=== PATIENT | female | born 1935 | race Asian ===

== ENCOUNTER 2017-05-17 11:53 | Inpatient (IN) | payer MEDICAID, OTHER ==
--- NOTE | 2017-05-17 12:01 | ED Physician Chart ---
ED Chief Complaint/HPI - Patient Information Date Seen:: 05/17/17 Time Seen:: 11:55 Chief Complaint:: Weakness History of Present Illness:: onset x one day of weakness and dizziness; no report of trauma, syncope, near- syncope, H/As, S/T, neck pain, C/P, SOB, cough, Abd. Pain, A/N/V/D/C, fever, chills, or urinary s/s Historian:: Patient, EMS Review:: Nurse's Note Reviewed, EMS run form Reviewed ED Review of Systems - Review of Systems General/Constitutional: No fever, No chills, No weight loss, No weakness, No diaphoresis, No edema, No loss of appetite Skin: No skin lesions, No rash, No bruising Head: No headache, No light-headedness Eyes: No loss of vision, No pain, No diplopia ENT: No earache, No nasal drainage, No sore throat, No tinnitus Neck: No neck pain, No swelling, No thyromegaly, No stiffness, No mass noted Cardio Vascular: No chest pain, No palpitations, No PND, No orthopnea, No edema Pulmonary: SOB, Cough, No sputum, No wheezing GI: No nausea, No vomiting, No diarrhea, No pain, No melena, No hematochezia, No constipation, No hematemesis G/U: No dysuria, No frequency, No hematuria Profiler Hand: No vaginal discharge, No abnormal vaginal bleed, No contraction Musculoskeletal: No bone or joint pain, No back pain, No muscle pain Endocrine: No polyuria, No polydipsia Psychiatric: No prior psych history, No depression, No anxiety, No suicidal ideation, No homicidal ideation, No auditory hallucination, No visual hallucination Hematopoietic: No bruising, No lymphadenopathy Allergic/Immuno: No urticaria, No angioedema Neurological: No syncope, No focal symptoms, No weakness, No paresthesia, No headache, No seizure, Dizziness, No confusion, Vertigo ED Past Medical History - Past Medical History Obtainable: Yes Past Medical History: HTN, CAD, Arthritis Family History: Diabetes Melitus, HTN Social History: Non Smoker, No Alcohol, No Drug Use, Surgical History: None Psychiatricy History: None Medication: Reviewed ED Physical Exam - Physical Examination General/Constitutional: Awake, Well-developed, well-nourished, Alert, No distress, GCS 15, Non-toxic appearing, Ambulatory Head: Atraumatic Eyes: Lids, conjuctiva normal, PERRL, EOMI Skin: Nl inspection, No rash, No skin lesions, No ecchymosis, Well hydrated, No lymphadenopathy ENMT: External ears, nose nl, TM canals nl, Nasal exam nl, Lips, teeth, gums nl , Oropharynx nl, Tonsils nl Neck: Nontender, Full ROM w/o pain, No JVD, No nuchal rigidity, No bruit, No mass, No stridor Respiratory: Nl effort/Exclusion Other Respiratory comments:: Lungs: + Rales Cardio Vascular: No murmur, gallop, rubs, NL S1 S2, Carotid/Femoral/Distal pulses equal bilaterally Other Cardio Vascular comments:: Irregular Irregular Rhythm GI: No tenderness/rebounding/guarding, No organomegaly, No hernia, Normal BS's, Nondistended, No mass/bruits, No McBurney tenderness : No CVA tenderness Extremities: No tenderness or effusion, Full ROM, normal strength in all extremities, No edema, Normal digits & nails Neuro/Psych: Alert/oriented, DTR's symmetric, Normal sensory exam, Normal motor strength, Judgement/insight normal, Mood normal, Normal gait, No focal deficits Misc: Normal back, No paraspinal tenderness ED Labs/Radiology/EKG Results - Lab Results Comments:: WBC: 4.4; BNP: 589 - Radiology Results Comments:: CXR: CM; mild CHF - EKG Interpretations EKG Time:: 13:22 Rate & Rhythm: 78; Atrial Fibrillation Comments:: non-specific st-t changes ED Septic Shock - . Is Septic Shock (SBP<90, OR Lactate>4 mmol\L) present?: No ED Reassessment (Disposition) - Reassessment Reassessment Condition:: Improved - Diagnosis Diagnosis:: Dx: Atrial Fibrillation; Leukopenia; CHF - Aftercare/Follow up Instructions Aftercare/Follow-Up Instructions:: Counseled pt regarding lab results/diagnosis & need follow up, Counseled pt & family regarding lab results/diagnosis & need follow up - Patient Disposition Discharge/Transfer:: Acute Care w/in this hosp Accepting Physician:: Dr. Rene Time Called:: 1430 Time Responded:: 14:30 Admitted to:: Telemetry Spoke to:: Dr. Rene Admitting Medical Physician:: Dr. Rene Condition at Disposition:: Stable, Improved
[2017-05-17 12:25] LABS: % BASOPHILS 0.1 % (0.0-2.0); % LYMPHOCYTES 26.6 % (20.0-50.0); % MONOCYTES 8.3 % (2.0-10.0); EOSINOPHILE ABSOLUTE 0.1 Th/cmm (0.1-0.4); HEMOGLOBIN 13.7 gm/dL (12-16); LYMPHOCYTE ABSOLUTE 1.2 Th/cmm (1.5-3.0); MEAN CELL VOLUME 93.1 fl (81-100); MEAN CORPUSCULAR HEMOGLOBIN 30.4 pg (27.0-31.0); MEAN CORPUSCULAR HGB CONC 32.7 pg (28.0-36.0); MEAN PLATELET VOLUME 7.4 fl; MONOCYTE ABSOLUTE 0.4 Th/cmm (0.3-1.0); NEUTROPHILE ABSOLUTE 2.7 Th/cmm (1.8-8.0); PLATELET COUNT 218 Th/cmm (150-400); RED BLOOD COUNT 4.51 Mil/cmm (3.80-5.20); RED CELL DISTRIBUTION WIDTH 16.1 % (11.5-20.0); WHITE BLOOD COUNT 4.4 Th/cmm (4.8-10.8)
--- NOTE | 2017-05-17 12:53 | Diagnostic Imaging Report ---
Exam: CT examination of brain. HISTORY: Dizziness weakness. Total DLP equals 732 CTDI equals 38.2 Findings: Multiple contiguous thin section of brain obtained from the base of skull to the vertex without the administration of contrast material no prior studies available for comparison. The study demonstrates prominence of cerebral sulci and ventricles consistent with atrophy. Periventricular ischemic white matter changes also etiology appreciated. Diffuse calcification cerebellum and basal ganglia appreciated. This findings may be related to previous infectious process. There is no evidence of hemorrhage midline shift or edema. Bony calvarium is intact. Visualized paranasal sinuses are well aerated. IMPRESSION : Atrophy, periventricular ischemic white matter changes old etiology
[2017-05-17 13:05] LABS: ALB/GLOB RATIO 1.8 (1.0-1.8); ALBUMIN 4.1 gm/dL (3.7-5.3); ALKALINE PHOSPHATASE 91 U/L (34-104); ANION GAP 9.8 (7.0-16.0); BUN - UREA NITROGEN 18 mg/dL (7-25); CALCIUM SERUM 9.5 mg/dL (8.6-10.3); CARBON DIOXIDE 31.3 mEq/L (21.0-31.0); CHLORIDE 105 mEq/L (98-107); CHOLESTEROL 76 mg/dL (<200); CREATININE KINASE 122 U/L (30-223); GLUCOSE 110 mg/dL (70-105); HDL -HIGH DENSITY LIPOPROTEIN 40 mg/dL (23-92); POTASSIUM SERUM 5.1 mEq/L (3.5-5.1); SGOT 33 U/L (13-39); SGPT/ALT 23 U/L (7-52); SODIUM SERUM 141 mEq/L (136-145); TOTAL PROTEIN,SERUM 6.4 gm/dL (6.0-8.3); TRIGLYCERIDES 74 mg/dL (<150)
[2017-05-17 13:52] LABS: INR 1.3 (0.5-1.4); PROTHROMBIN TIME (TEST) 13.7 SECONDS (9.5-11.5)
[2017-05-17 13:54] LABS: DDIMER QUANT 922 ng/mL (100-400)
--- NOTE | 2017-05-17 14:03 | Diagnostic Imaging Report ---
Portable chest x-ray HISTORY: Pain The heart is enlarged. Atherosclerotic calcification seen in the aortic arch. No acute focal prominent processes. IMPRESSION: 1. No acute focal pulmonary processes 2. Cardiomegaly with atherosclerotic vascular changes
--- NOTE | 2017-05-17 18:54 | History & Physical ---
ADMIT DATE: 05/17/2017 CHIEF COMPLAINT: Doctor, "I get short of breath with walking a few steps and it is getting worse for last 1 week." HISTORY OF PRESENT ILLNESS: An 82-year-old [place] female with a diagnosis of hypertension, osteoarthritis, questionable rheumatoid arthritis, has been followed by pinking sewing machine operator, stated that she always gets dizzy when she uses 1 pillow, but lately she noticed that she was having shortness of breath with exertion and she stated when she walks few steps she gets short of breath and she has to rest. She thinks she needs to get better because she wants to do lot of things in her life. She also describes to me that she also noticed her face was kind of swollen. The patient denied any chest pain, but she states she was told that she has a skipped heartbeat. She was seen by foreman/project manager 1 year ago and she was told that she also has a weak heart, but no medicine was given as per patient's account. She has hypertension and she takes atenolol at home. Now, she just told me that she has been taking methotrexate for years for rheumatoid arthritis. The patient's methotrexate dose has cut down to only 2.5 mg. The patient currently denies any fever, chills, abdominal pain, nausea, vomiting, hematemesis, seizure, syncopal episode, suicidal or homicidal ideation. PAST MEDICAL HISTORY: Remarkable for: 1. Hypertension. 2. Rheumatoid arthritis. 3. Degenerative joint disease. 4. ____. MEDICATIONS AT HOME: She was taking atenolol, Prilosec, famotidine and methotrexate. ALLERGIES: The patient is not allergic to medications. SOCIAL HISTORY: The patient lives with the daughter in [facility]. She does not smoke, does not drink. FAMILY MEDICAL HISTORY: Remarkable for diabetes mellitus. REVIEW OF SYSTEMS: As I mentioned in history of present illness. PHYSICAL EXAMINATION: GENERAL: An 82-year-old, alert, awake, lying in the bed without any acute distress. VITAL SIGNS: Temperature 99, pulse is 74, respiratory rate is 20, blood pressure 136/90. HEENT: Normocephalic and atraumatic. Extraocular muscles are intact. Tongue more pink and coated. Multiple absent teeth with poor personal hygiene noted. NECK: Supple, slightly neck vein distention noted. No JVD, no lymphadenopathy, thyromegaly. HEART: Both heart sounds are irregularly irregular. Grade 2/6 systolic murmur noted. CHEST: Lung equal in expansion with fine basilar crackles noted. ABDOMEN: Soft. No guarding or rigidity. Liver and spleen palpable. No palpable mass. EXTREMITIES: No edema, no cyanosis. Peripheral +1. No calf tenderness. NEUROLOGIC: Alert, awake and follows commands. Decreased power throughout the upper and lower extremity. AVAILABLE DIAGNOSTIC DATA: Which includes CT scan of the head, chest x-ray, chemistry panel, CBC, PT/INR are reviewed. CLINICAL IMPRESSION: 1. An 82-year-old female with longstanding history of rheumatoid arthritis, takes methotrexate, now comes to the office for a week history of shortness of breath with exertion and she also tells me she has been told that she has a weak heart, now noted to have atrial fibrillation and elevated BNP. A chest x-ray read by radiologist as negative for any acute cardiopulmonary process, but in the view of my examination and laboratory diagnosis, I do think the patient's symptoms are related to congestive heart failure exacerbation. I cannot rule out possibilities of pulmonary fibrosis in the view of her long-time ____ methotrexate. 2. Atrial fibrillation. 3. Hypertension. 4. History of rheumatoid arthritis. 5. Degenerative joint disease. PLAN: 1. I will admit this patient to telemetry unit, provide oxygen. 2. Nebulizer treatment. 3. IV Lasix. 4. ARB. 5. Beta yulisa. 6. 2D echo. 7. Cardiology consult. 8. Three sets of cardiac enzymes and EKG. 9. CT chest. 10. Thyroid function test. 11. Proton pump inhibitor. 12. Follow lab 13. Follow consult recommendation. 14. Anticoagulation therapy will be deferred to foreman/project manager, may be newer agent versus low molecular weight heparin deferred to foreman/project manager. Care plan has been reviewed and discussed with the patient's daughter at bedside. JOB# [id number]
[2017-05-17] MEDS: Albuterol/Ipratropium Neb 3 ML AERS HHN SCH (20:34)
--- NOTE | 2017-05-17 22:23 | Consultation ---
DATE OF CONSULTATION: 05/17/[address] Rene. HISTORY AND PHYSICAL: This 82-year-old [place]ian female patient who has been complaining of shortness of breath, swelling of the face ____, came to the Emergency Room. The patient has a known history of hypertension, rheumatoid arthritis, degenerative joint disease, osteoporosis and GERD. FAMILY HISTORY: Unremarkable. SOCIAL HISTORY: No history of smoking or alcohol abuse. ALLERGIES: No known allergies. PHYSICAL EXAMINATION: VITAL SIGNS: Blood pressure 130/80, pulse 88 and irregular and respirations 28. HEAD: Normocephalic. No lumps or bumps. EYES: Pupils equal, reactive to light. Fundi show AV nicking, sclerae white, conjunctivae pink. NECK: Carotid 2+. Normal upstroke. JVD 10 cm above sternal angle. Thyroid not palpable. Lymph nodes not palpable. CHEST: Shows increased AP diameter. No kyphosis or scoliosis. LUNGS: Bilateral rales. Decreased breath sounds both the bases. HEART: PMI, fifth intercostal space with lateral to midclavicular line. S1 and S2. No S3, soft S4, soft systolic murmur. ABDOMEN: Soft. Liver and spleen not palpable. No organomegaly. Bowel sounds active. NEUROLOGIC: Unremarkable. EXTREMITIES: Peripheral pulses 2+. No pedal edema. CLINICAL IMPRESSION: Atrial fibrillation, congestive heart failure, hypertension, rheumatoid arthritis and degenerative joint disease. PLAN: The patient to have echocardiogram for left ventricular function. We will anticoagulate the patient. Continue present care on the medication and continue methotrexate. [facility]# [id number]
[2017-05-18] MEDS ORDERED: Albuterol/Ipratropium Neb 3 ML AERS HHN ONE ×2 (07:21→11:33)
[2017-05-18 07:38] LABS: % BASOPHILS 0.1 % (0.0-2.0); % EOSINOPHILS 2.5 % (0.0-5.0); % LYMPHOCYTES 25.7 % (20.0-50.0); % MONOCYTES 14.4 % (2.0-10.0); % NEUTROPHILS 57.3 % (40.0-80.0); EOSINOPHILE ABSOLUTE 0.1 Th/cmm (0.1-0.4); HEMATOCRIT 38.8 % (41.0-60); HEMOGLOBIN 12.4 gm/dL (12-16); LYMPHOCYTE ABSOLUTE 0.8 Th/cmm (1.5-3.0); MEAN CELL VOLUME 93.2 fl (81-100); MEAN CORPUSCULAR HEMOGLOBIN 29.8 pg (27.0-31.0); MEAN PLATELET VOLUME 8.1 fl; MONOCYTE ABSOLUTE 0.5 Th/cmm (0.3-1.0); NEUTROPHILE ABSOLUTE 1.8 Th/cmm (1.8-8.0); PLATELET COUNT 190 Th/cmm (150-400); RED BLOOD COUNT 4.16 Mil/cmm (3.80-5.20)
[2017-05-18 07:43] LABS: WHITE BLOOD COUNT 3.2 Th/cmm (4.8-10.8)
[2017-05-18] MEDS: Albuterol/Ipratropium Neb 3 ML AERS HHN SCH ×3 (07:44→19:40)
[2017-05-18 08:07] LABS: ANION GAP 10.9 (7.0-16.0); BUN - UREA NITROGEN 20 mg/dL (7-25); CARBON DIOXIDE 28.2 mEq/L (21.0-31.0); CHLORIDE 105 mEq/L (98-107); GLUCOSE 145 mg/dL (70-105); POTASSIUM SERUM 4.1 mEq/L (3.5-5.1); SODIUM SERUM 140 mEq/L (136-145)
[2017-05-18 08:08] LABS: ALB/GLOB RATIO 1.9 (1.0-1.8); ALBUMIN 3.6 gm/dL (3.7-5.3); ALKALINE PHOSPHATASE 84 U/L (34-104); BILIRUBIN,TOTAL 1.6 mg/dL (0.3-1.0); CALCIUM SERUM 9.3 mg/dL (8.6-10.3); MAGNESIUM 2.1 mg/dL (1.9-2.7); SGOT 30 U/L (13-39); SGPT/ALT 21 U/L (7-52); TOTAL PROTEIN,SERUM 5.5 gm/dL (6.0-8.3)
[2017-05-18] MEDS: Pantoprazole 40 mg EC Tab PO SCH (08:10)
--- NOTE | 2017-05-18 08:21 | Diagnostic Imaging Report ---
CT Chest without IV contrast HISTORY: Shortness of breath COMPARISON: Chest x-ray on 05/17/2017 Technique: Axial images were obtained from the base of the neck to the upper abdomen without IV contrast. Reconstructions were made. Total DLP 197, CTD I explained 5 Findings: Evaluation of mediastinum is limited due to lack of IV contrast. There is no evidence of mediastinal lymphadenopathy. Moderate atherosclerotic vascular disease is noted. Cardiomegaly is noted. No evidence of pericardial effusion. The ascending aorta ectatic measuring up to 3.8 cm. There is elevation of the right hemidiaphragm. Mild chronic lung changes are seen with hypoventilatory changes and mild groundglass opacities. Atelectatic changes of the lungs are also noted. No focal consolidation. Trace bilateral effusions are noted. The upper abdomen demonstrates atherosclerosis. Anasarca is noted. Degenerative changes of the spine are noted. Scoliosis is noted. IMPRESSION: Mild groundglass opacity the lungs which are nonspecific and may represent faint infiltrates or may be due to hypoventilatory changes. Trace bilateral effusions. Atelectatic and hypoventilatory changes of the lungs. Cardiomegaly and moderate atherosclerotic vascular disease. Ectatic ascending aorta measuring up to 3.8 cm.
[2017-05-18] MEDS ORDERED: Potassium Chloride 20 mEq ER Tab PO SCH (09:00)
[2017-05-18] MEDS ORDERED: IOHEXOL 300mgI/mL 100 ML VIAL IVP ONE (10:05)
--- NOTE | 2017-05-18 12:20 | Diagnostic Imaging Report ---
CHEST X-RAY: AP view INDICATION: CHF COMPARISON: 05/17/2017 FINDINGS: Mild congestive changes are is suspected with probable small right effusion. No focal consolidation identified. Cardiomegaly is noted. IMPRESSION: Suspect Mild congestive changes. No focal consolidation identified. Cardiomegaly.
--- NOTE | 2017-05-18 13:31 | Diagnostic Imaging Report ---
CT Chest with IV contrast HISTORY: Pulmonary fibrosis. COMPARISON: CT chest on 05/17/2017 Technique: Axial images were obtained from the base of the neck to the upper abdomen following administration of IV contrast. Coronal reconstructions were made. Total DLP to 47, CTD I 6.5 Findings: There is a 9 mm nodule along the right lower thyroid gland. No evidence of mediastinal lymphadenopathy. Ectatic aorta is noted measuring up to 3.8 cm. Cardiomegaly is noted with prominence of the right atrial chamber. No pericardial effusion. The lung riley demonstrate hypoventilatory and groundglass opacities with small effusions. Mild chronic lung changes are seen with no definite evidence of fibrosis. Atelectatic changes of the lungs are also noted. No evidence of pleural effusions.. The upper abdomen demonstrates mild edema of the gallbladder. There is an indeterminate 2.5 cm left adrenal nodule is noted. Sub-CM low-density lesion of the dome of the liver is noted to small to characterize. Degenerative changes spine are noted scoliosis. IMPRESSION: Scattered groundglass opacity of the lungs which may be due to mild CHF. Small bilateral effusions are also noted. Please correlate clinically. Mild chronic lung changes are seen with no evidence of pulmonary fibrosis. Cardiomegaly and atherosclerotic vascular disease. 2.5 cm left adrenal nodule, Hounsfield units are indeterminate. Recommend short-term follow-up with CT abdomen and pelvis, without IV contrast Gallbladder wall edema. Consider follow-up with ultrasound. 9 mm nodule in the right lobe of the thyroid gland. Ultrasound would further clarify.
[2017-05-19 07:07] LABS: % BASOPHILS 0.1 % (0.0-2.0); % EOSINOPHILS 4.3 % (0.0-5.0); % LYMPHOCYTES 22.7 % (20.0-50.0); % MONOCYTES 14.8 % (2.0-10.0); % NEUTROPHILS 58.1 % (40.0-80.0); EOSINOPHILE ABSOLUTE 0.2 Th/cmm (0.1-0.4); HEMATOCRIT 37.9 % (41.0-60); HEMOGLOBIN 12.5 gm/dL (12-16); MEAN CELL VOLUME 92.8 fl (81-100); MEAN CORPUSCULAR HEMOGLOBIN 30.6 pg (27.0-31.0); MEAN PLATELET VOLUME 7.8 fl; MONOCYTE ABSOLUTE 0.6 Th/cmm (0.3-1.0); NEUTROPHILE ABSOLUTE 2.5 Th/cmm (1.8-8.0); PLATELET COUNT 194 Th/cmm (150-400); RED BLOOD COUNT 4.08 Mil/cmm (3.80-5.20); RED CELL DISTRIBUTION WIDTH 16.3 % (11.5-20.0)
[2017-05-19 07:11] LABS: WHITE BLOOD COUNT 4.3 Th/cmm (4.8-10.8)
[2017-05-19] MEDS: Albuterol/Ipratropium Neb 3 ML AERS HHN SCH (07:27)
[2017-05-19 07:37] LABS: ALB/GLOB RATIO 1.5 (1.0-1.8); ALBUMIN 3.2 gm/dL (3.7-5.3); ALKALINE PHOSPHATASE 96 U/L (34-104); ANION GAP 10.8 (7.0-16.0); BILIRUBIN,TOTAL 1.5 mg/dL (0.3-1.0); BUN - UREA NITROGEN 19 mg/dL (7-25); CALCIUM SERUM 8.9 mg/dL (8.6-10.3); CHLORIDE 102 mEq/L (98-107); GLUCOSE 133 mg/dL (70-105); POTASSIUM SERUM 3.8 mEq/L (3.5-5.1); SGOT 28 U/L (13-39); SGPT/ALT 19 U/L (7-52); SODIUM SERUM 140 mEq/L (136-145); TOTAL PROTEIN,SERUM 5.3 gm/dL (6.0-8.3)
[2017-05-19] MEDS ORDERED: Magnesium Chloride EC 64mg Tab PO SCH (09:00)
[2017-05-19] MEDS ORDERED: Potassium Chloride 20 mEq ER Tab PO SCH (09:00)
[2017-05-19] MEDS: Pantoprazole 40 mg EC Tab PO SCH (09:22)
--- NOTE | 2017-05-19 17:05 | Cardiology ---
05/18/2017 This is a patient of Dr. Rene. M-MODE ECHOCARDIOGRAM: Anterior leaflet mitral valve shows normal excursion, EF velocity. Posterior leaflet of mitral valve shows normal excursion. Left ventricular posterior shows increased thickness, normal excursion. Interventricular septum shows increased thickness, normal excursion, hypertrophy of the left ventricle, ejection fraction 60%. Left atrium is normal. Aortic root shows normal dimension, normal excursion of aortic leaflets. CONCLUSION: Hypertrophy of the left ventricle, ejection fraction 60%. A 2D echocardiogram on the same patient: Long axis view showed normal-sized left ventricle with hypertrophy of the left ventricle. Left atrium is normal. Aortic root shows normal dimension, normal excursion of aortic leaflets. Short axis view of mitral valve normal. Short axis view of aortic valve normal. Apical four chamber view showed normal-sized left ventricle with hypertrophy of the left ventricle. Left atrium, normal. Right ventricular cavity normal. Right atrium enlarged, ejection fraction 60%. CONCLUSION: Right atrial enlargement. Hypertrophy of the left ventricle, ejection fraction is 60%. Doppler study shows moderate mitral regurgitation, severe tricuspid regurgitation, mild pulmonary regurgitation, right ventricular systolic pressure 55 mmHg with moderate pulmonary hypertension. JOB# [id number]
--- NOTE | 2017-05-19 18:47 | Discharge Summary ---
DATE OF DISCHARGE: 05/19/2017 PRINCIPAL DIAGNOSES: 1. New onset of atrial fibrillation. 2. Left ventricular dysfunction. 3. Congestive heart failure exacerbation. 4. Hypertension. 5. Degenerative joint disease. 6. Rheumatoid arthritis by history. 7. Decline in self care, mobility. BRIEF STATEMENT FOR THE REASON FOR ADMISSION: An 82-year-old Irish [place]an female, who presented to Emergency Room for evaluation of dizziness, shortness of breath with exertion where the patient was evaluated and subsequently admitted to the hospital for further treatment. Please refer to my dictated medical H and P for further information. HOSPITAL COURSE: The patient was admitted to telemetry unit. The patient was given: 1. Oxygen. 2. Nebulizer treatment. 3. IV Lasix. 4. ARB. 5. Beta yulisa. 6. Anticoagulation therapy. 7. Cardiology consultation. 8. Cardiac monitoring. The patient was given appropriate therapy and the patient was improving fairly well in the view of her chest x-ray being negative. CT chest with contrast has revealed consistent with pulmonary edema. The patient did improve significantly with IV Lasix and the patient did have 2D echocardiogram. 2D echocardiogram did reveal the patient had evidence of LV dysfunction. 2D echocardiogram did reveal the patient had an ejection fraction of 60% along with mild to moderate mitral regurgitation, severe tricuspid regurgitation along with mildly dilated inferior vena cava. The patient was placed on anticoagulation therapy with Eliquis at the time of discharge. Since the patient improved significantly, decision then was made that the patient will be discharged home. The patient was given prescription of losartan 25 mg daily, Coreg 3.125 mg b.i.d. along with Lasix 40 mg daily, and potassium 20 mEq daily along with Eliquis 5 mg b.i.d. and has followup with washery engineer in 1 week. The patient is advised to stop her atenolol as well as a Pepcid at home and methotrexate as well. The patient has fully understood about the discharge plan. The patient will be followed by home health visiting nurse as well. JOB# [id number]
== END 2017-05-19 13:30 | disposition home or self-care (01) | DRG 293 ==
LOC: ER 11:53 → TELE 17:45
PROVIDERS: ADMIT Internal Medicine; ATTEND Internal Medicine
DX: I11.0 Hypertensive heart disease with heart failure (principal); I48.91 Unspecified atrial fibrillation; I08.1 Rheumatic disorders of both mitral and tricuspid valves; M06.9 Rheumatoid arthritis, unspecified; I50.31 Acute diastolic (congestive) heart failure; Z82.49 Family history of ischemic heart disease and other diseases of the circulatory system; I50.9 Heart failure, unspecified; M19.90 Unspecified osteoarthritis, unspecified site; K21.9 Gastro-esophageal reflux disease without esophagitis; M81.0 Age-related osteoporosis without current pathological fracture; D72.819 Decreased white blood cell count, unspecified; I25.10 Atherosclerotic heart disease of native coronary artery without angina pectoris; R01.1 Cardiac murmur, unspecified; Z83.3 Family history of diabetes mellitus
CPT/HCPCS: 36415-UA; 70450-TC; 71010-TC; 71250-TC; 71260-TC; 80053-TC; 80061-TC; 82550-TC; 83735-TC; 83880-TC; 84484-TC; 85025-TC; 85379-TC; 85610-TC; 93005; 93307-TC; 94760; J1940; Q9967; Z7610